=== PATIENT | female | born 1950 | race Caucasian/White ===

== ENCOUNTER 2017-07-18 12:51 | Emergency (ER) | payer MEDICARE, OTHER ==
[~2017-07-18] VITALS: Ht 162.6 cm; Wt 170.0 kg
--- OUTSIDE RECORDS SUMMARY | ~2017-07-18 | XMS | Clinical Summary ---
Demographics + + + | Address | [address] | | | [place] [address] | + + + | Home Phone | | + + + | Preferred Language | Unknown | + + + | Marital Status | | + + + | Roman Catholic Affiliation | Unknown | + + + | Race | White | + + + | Ethnic Group | Not or | + + + Author + + + | Author | [facility] | + + + | Organization | [facility] | + + + | Address | Unknown | + + + | Phone | Unavailable | + + + Support +------+ + + + | Name | Relationship | Address | Phone | +------+ + + + ECON | [place] | | +------+ + + + Care Team Providers + +------+ + | Care Advertisement Compositor Name | Role | Phone | + +------+ + PP | Unavailable | + +------+ + Source Comments DARRION is fully live on both [facility] and [facility] Allergies Not on File Current Medications Not on file Active Problems Not on file Social History + +-------+ +--------+------+ | Tobacco Use | Types | Packs/Day | Years | Date | | | | | Used | | + +-------+ +--------+------+ | Never Assessed | | | | | + +-------+ +--------+------+ + + + | Sex Assigned at | Date Recorded | | | | + + + | Not on file | | + + + Plan of Treatment + + + + + | Health Maintenance | Due Date | Last Done | Comments | + + + + + | INFLUENZA VACCINE | | | | | (FLU SHOT) | 7 | | | + + + + + Results Not on filefrom Last 3 Months"
[~2017-07-18 12:51] MED LIST: ADULT LOW DOSE81 MG PO; DAILY MULTIPLE1 EACH PO; GLIMEPIRIDE1 MG PO; JANUVIA25 MG PO; METFORMIN HCL1000 MG PO; TRAMADOL HCL50 MG PO; VITAMIN D2000 UNI1 PO; ZANTAC150 MG PO
[2017-07-18] MEDS ORDERED: LANTUS SOL100 UNIT/1 SUB-Q (13:10)
[2017-07-18] MEDS ORDERED: OMEPRAZOLE40 MG PO (13:11)
[2017-07-18] MEDS ORDERED: CILOXAN5 ML OD (13:37)
== END 2017-07-18 14:00 | disposition home or self-care (01) ==
LOC: ED 12:51
DX: S05.01XA Injury of conjunctiva and corneal abrasion without foreign body, right eye, initial encounter (principal); E11.9 Type 2 diabetes mellitus without complications; Z88.0 Allergy status to penicillin; Z88.5 Allergy status to narcotic agent; Z88.8 Allergy status to other drugs, medicaments and biological substances; Z79.4 Long term (current) use of insulin; Z79.899 Other long term (current) drug therapy; Z79.82 Long term (current) use of aspirin; X58.XXXA Exposure to other specified factors, initial encounter
CPT/HCPCS: 99283

== ENCOUNTER 2018-08-23 07:05 | Day surgery (SDC) | payer MEDICARE, OTHER ==
[~2018-08-23] VITALS: Ht 162.6 cm; Wt 74.8 kg
[~2018-08-23 07:05] MED LIST changes: +CILOXAN5 ML OD; +JANUVIA100 MG PO; +LANTUS SOL100 UNIT/1 SUB-Q; +LEVEMIR100 UNIT/1 SUB-Q; +LOSARTAN POTAS100 MG PO; +OMEPRAZOLE40 MG PO; +VENTOLIN HFA18 GM INH
--- NOTE | 2018-08-23 08:45 | NUR ---
08/23/18 0845 Sheets,Amina 0858 PT ARRIVED TO PACU ON 10L VIA MASK AND ORAL AIRWAY IN PLACE. PT COUHGING AND ORAL AIRWAY REMOVED ON ARRIVAL. PT REACTIVE TO VERBAL STIMULI. VSS. 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 PT DENIES PAIN AND NAUSEA. PT RESTING IN BED IN SEMI FOWLERS ASKING ABOUT EATING.
--- NOTE | 2018-08-23 08:56 | NUR ---
PT RESTING COMFORTABLY-HAS HAD PREVIOUS SCOPES, EXTENDED A BLESSING AND WILL CONTINUE TO FOLLOW NEEDED
--- NOTE | 2018-08-24 10:27 | OR ---
[facility] [address], [place] [address] Signed DATE OF OPERATION: 08/23/2018 SURGEON: Edson Koenig MD PREOPERATIVE DIAGNOSES: 1. Gastroesophageal reflux disease with breakthrough symptoms. 2. History of esophageal ulcers (30s). 3. History of H pylori (). 4. Small hiatal hernia. 5. Epigastric pain. POSTOPERATIVE DIAGNOSES: 1. Small hiatal hernia. 2. Mild gastritis. PROCEDURES: EGD with CLOtest and biopsies of the pyloric bulb and antrum. ESTIMATED BLOOD LOSS: None. INDICATIONS: Kimberley is a 68-year-old female, who had upper and lower endoscopy back in 2013. We know she is extremely sensitive to narcotics and propofol with respect to her respiratory rate. She had to be intubated during her endoscopy back in 2013. Of course, she did fine afterwards. Consequently, we always have an anesthesia provider to help us with increased monitoring sedation with the propofol given her previous history. More recently she has continued to have breakthrough symptoms of acid reflux, even though she is on double the dose of her Prilosec. Consequently, she was asked to see me for a repeat upper endoscopy. She reminded me of the esophageal ulcers when she was in her 30s. She also was positive for Helicobacter pylori in the and was treated. We recheck her in 2013, it was negative. She is known to have a small hiatal hernia. She often has epigastric pain. In the office, I gave her a pamphlet on upper endoscopy. We looked at that together along with the risks including, but not limited to gas, bloating, crampy abdominal pain, bleeding, perforation, requiring surgery, and missed diagnosis. We also discussed the need for IV conscious sedation with the help of an anesthesia provider. She had expressed her understanding wished to proceed. PROCEDURE NOTE: Kimberley was taken into our endoscopy suite and placed in the supine semi-recumbent Electronically Signed By: EDSON KOENIG MD 08/24/18 0729 PATIENT NAME: KIMBERLEY ROMERO OPERATIVE REPORT DATE OF : 52 REPORT #: [id number] PHYSICIAN: EDSON KOENIG MD PCP: CA NELSON REPORT IS CONFIDENTIAL AND NOT TO BE RELEASED WITHOUT AUTHORIZATION [facility] [address] [place] [id number] Signed position. The posterior oropharynx was anesthetized with Hurricaine spray. A bite block was utilized for the case. She was given propofol IV very slowly and carefully by our anesthesia provider. She actually did quite well. The adult gastroscope was introduced and advanced all the way out into the third portion of the duodenum under direct visualization of camera without difficulty. The duodenum and pyloric channel seemed to be unremarkable. Just a little irritation in the pyloric bulb, so we went ahead and took a biopsy from that area. No ulcerations in the pyloric bulb or stomach. Again, just some mild erythema in her distal stomach, so we took a biopsy of the antrum for pathologic review as well as CLOtest. Upon retroflexion of the scope, the incisura body and fundus of the stomach were unremarkable. She does have just a small hiatal hernia. There are no gastric or esophageal varices. The scope was withdrawn up through the GE junction, which was compliant without stricture. She does have minimal disruption to the Z-line. No Sierra's mucosa, no distal esophagitis. The middle and upper esophagus were unremarkable. After this, the gas was suctioned out and the gastroscope removed. Kimberley tolerated the procedure quite well. RECOMMENDATION: I will see Kimberley back in my office in 7 to 14 days to review her results. She could consider a barium swallow as well as a solid phase gastric emptying study. She has also expressed a desire to get off her omeprazole and that would require surgery. Edson Koenig MD ALB/MODL /[id number] cc: Dr. Edson Taylor MD Copies: EDSON KOENIG MD ~ Electronically Signed By: EDSON KOENIG MD 08/24/18 0729 PATIENT NAME: KIMBERLEY ROMERO OPERATIVE REPORT DATE OF : 52 REPORT #: [id number] PHYSICIAN: EDSON KOENIG MD PCP: CA NELSON REPORT IS CONFIDENTIAL AND NOT TO BE RELEASED WITHOUT AUTHORIZATION
== END 2018-08-23 09:15 | disposition home or self-care (01) ==
LOC: DS 07:05 → OPS 07:05 → DS 08:00 → OPS 08:00
PROVIDERS: Colon & Rectal Surgery
PROC: 0DB78ZX Excision of Stomach, Pylorus, Via Natural or Artificial Opening Endoscopic, Diagnostic (ICD-10-PCS; principal; 2018-08-23 08:00)
DX: K29.50 Unspecified chronic gastritis without bleeding (principal); K44.9 Diaphragmatic hernia without obstruction or gangrene; I10 Essential (primary) hypertension; E11.9 Type 2 diabetes mellitus without complications; F32.9 Major depressive disorder, single episode, unspecified; K21.9 Gastro-esophageal reflux disease without esophagitis; J45.909 Unspecified asthma, uncomplicated; Z88.8 Allergy status to other drugs, medicaments and biological substances; Z88.0 Allergy status to penicillin; Z88.5 Allergy status to narcotic agent; Z79.899 Other long term (current) drug therapy; Z79.82 Long term (current) use of aspirin
CPT/HCPCS: 86677; 88305; J2704; J7120

== ENCOUNTER 2019-12-31 22:40 | Emergency (ER) | payer MEDICARE, OTHER ==
[~2019-12-31] VITALS: Ht 162.6 cm; Wt 74.8 kg
[2019-12-31] MEDS ORDERED: TRAZODONE HCL50 MG PO (22:49)
[2019-12-31] MEDS ORDERED: NORCO 5-325 TA1 EACH PO (23:25)
== END 2020-01-01 00:50 | disposition home or self-care (01) ==
LOC: ED 22:40
DX: S42.202A Unspecified fracture of upper end of left humerus, initial encounter for closed fracture (principal); E11.9 Type 2 diabetes mellitus without complications; Z88.0 Allergy status to penicillin; Z88.8 Allergy status to other drugs, medicaments and biological substances; Z79.899 Other long term (current) drug therapy; Z79.4 Long term (current) use of insulin; Z79.82 Long term (current) use of aspirin; W01.0XXA Fall on same level from slipping, tripping and stumbling without subsequent striking against object, initial encounter
CPT/HCPCS: 73060; 96374; 99283-25; J1170

== ENCOUNTER 2020-12-08 02:57 | Emergency (ER) | payer MEDICARE, OTHER ==
[~2020-12-08] VITALS: Ht 162.6 cm; Wt 72.0 kg
[~2020-12-08 02:57] MED LIST changes: +NORCO 5-325 TA1 EACH PO; +TRAZODONE HCL50 MG PO
[2020-12-08] MEDS ORDERED: METFORMIN HCL500 M1 PO (03:14)
[2020-12-08] MEDS ORDERED: NOVOLOG FL100 UNIT/1 SUB-Q (03:14)
[2020-12-08] MEDS ORDERED: PERCOCET 5-3251 EACH PO (04:25)
[2020-12-08] MEDS ORDERED: FLOMAX0.4 MG PO (04:25)
== END 2020-12-08 04:56 | disposition home or self-care (01) ==
LOC: ED 02:57
DX: N13.2 Hydronephrosis with renal and ureteral calculous obstruction (principal); E11.9 Type 2 diabetes mellitus without complications; Z88.0 Allergy status to penicillin; Z88.5 Allergy status to narcotic agent; Z88.8 Allergy status to other drugs, medicaments and biological substances; Z79.4 Long term (current) use of insulin; Z79.899 Other long term (current) drug therapy
CPT/HCPCS: 74176; 80053; 81001; 85025; 96374; 96375; 99284-25; J1885; J2405

== ENCOUNTER 2023-03-09 19:26 | Emergency (ER) | payer MEDICARE, OTHER ==
[~2023-03-09] VITALS: Ht 162.6 cm; Wt 71.7 kg
[~2023-03-09 19:26] MED LIST changes: +FLOMAX0.4 MG PO; +METFORMIN HCL500 M1 PO; +NOVOLOG FL100 UNIT/1 SUB-Q; +PERCOCET 5-3251 EACH PO
[2023-03-09] MEDS ORDERED: MAGNESIUM OXID250 MG PO (19:39)
[2023-03-09] MEDS ORDERED: ZANAFLEX4 MG PO (19:39)
[2023-03-09 21:52] VITALS: BP 162/76
== END 2023-03-09 21:48 | disposition home or self-care (01) ==
LOC: ED 19:26
DX: K59.00 Constipation, unspecified (principal); E11.9 Type 2 diabetes mellitus without complications; Z88.0 Allergy status to penicillin; Z88.5 Allergy status to narcotic agent; Z88.8 Allergy status to other drugs, medicaments and biological substances; Z79.899 Other long term (current) drug therapy; Z79.4 Long term (current) use of insulin; Z79.84 Long term (current) use of oral hypoglycemic drugs
CPT/HCPCS: 99283

== ENCOUNTER 2024-10-21 09:37 | Emergency (ER) | payer OTHER, MEDICARE | END 2024-10-21 12:15 | disposition home or self-care (01) | LOC: ED 09:37 | DX: S42.255A Nondisplaced fracture of greater tuberosity of left humerus, initial encounter for closed fracture (principal); S82.001A Unspecified fracture of right patella, initial encounter for closed fracture; S09.8XXA Other specified injuries of head, initial encounter; E11.9 Type 2 diabetes mellitus without complications; W01.10XA Fall on same level from slipping, tripping and stumbling with subsequent striking against unspecified object, initial encounter ==